=== PATIENT | male | born 1980 | race Caucasian/White ===

== ENCOUNTER 2021-01-15 15:11 | Emergency (ER) | payer OTHER ==
[2021-01-15 15:19] VITALS: BP 114/69; PULSE 88; TEMP 97.8; BMI 29.0
[2021-01-15] MEDS ORDERED: IBUPROFEN 400 MG TABLET (FP) PO ONE ×2 (16:30→16:32)
== END 2021-01-15 17:15 | disposition home or self-care (01) ==
LOC: JERFT 15:11
DX: S83.92XA Sprain of unspecified site of left knee, initial encounter (principal); W01.0XXA Fall on same level from slipping, tripping and stumbling without subsequent striking against object, initial encounter
CPT/HCPCS: 73562-TC-LT-FY; 99283-25